=== PATIENT | male | born 1980 | race Caucasian/White ===

== ENCOUNTER 2017-03-10 17:58 | Emergency (ER) | payer OTHER ==
[~2017-03-10] VITALS: Ht 172.7 cm; Wt 119.8 kg
[~2017-03-10 17:58] MED LIST: AMOXICILLIN500 M1 PO; AMOXICILLIN875 MG PO; HYDROCODON-ACE1 EAC7 PO; KEFLEX500 MG PO; MOTRIN600 MG PO; MOTRIN800 MG PO; NAPROSYN500 MG PO; NAPROXEN500 MG PO; NEURONTIN300 MG; NORCO 5/3251 TABLET PO; TRAMADOL HCL50 MG PO; ULTRAM50 MG PO; VICODIN 5-3001 EACH PO
[2017-03-10 19:42] VITALS: BP 117/81
== END 2017-03-10 20:04 | disposition home or self-care (01) ==
LOC: EME 17:58
DX: S01.312A Laceration without foreign body of left ear, initial encounter (principal); S11.81XA Laceration without foreign body of other specified part of neck, initial encounter; X99.9XXA Assault by unspecified sharp object, initial encounter; Y93.01 Activity, walking, marching and hiking; Y92.480 Sidewalk as the place of occurrence of the external cause; Y07.59 Other non-family member, perpetrator of maltreatment and neglect; Z23 Encounter for immunization; Z85.47 Personal history of malignant neoplasm of testis; Z87.891 Personal history of nicotine dependence
CPT/HCPCS: 99281; 99285